=== PATIENT | male | born 1990 | race Caucasian/White ===

== ENCOUNTER 2017-07-21 15:35 | Emergency (ER) | payer MEDICAID ==
[~2017-07-21] VITALS: Ht 180.3 cm; Wt 68.0 kg
[~2017-07-21 15:35] MED LIST: MARIJUANA
[2017-07-21 16:20] VITALS: BP 129/62
[2017-07-21] MEDS ORDERED: IBUPROFEN 800 MG TAB PO ONE (17:15)
== END 2017-07-21 17:18 | disposition home or self-care (01) ==
LOC: ER 15:35
DX: S60.041A Contusion of right ring finger without damage to nail, initial encounter (principal); S60.031A Contusion of right middle finger without damage to nail, initial encounter; Z88.8 Allergy status to other drugs, medicaments and biological substances; W22.8XXA Striking against or struck by other objects, initial encounter; Y93.89 Activity, other specified; Y92.89 Other specified places as the place of occurrence of the external cause; Y99.8 Other external cause status
CPT/HCPCS: 73130

== ENCOUNTER 2017-09-30 07:19 | Emergency (ER) | payer MEDICAID ==
[~2017-09-30] VITALS: Ht 180.3 cm; Wt 68.0 kg
[2017-09-30 08:06] LABS: Basophils # (auto) 0.1 uL; Basophils % (auto) 0.8 % (0.0-2.0); Eosinophils # (auto) 0.1 uL; Eosinophils % (auto) 1.4 % (0.0-7.0); Hematocrit 43.6 % (41.0-53.0); Lymphocytes # (auto) 1.5 uL; Lymphocytes % (auto) 19.5 % (10.0-50.0); Mean Corpuscular Hemoglobin 31.6 pg (28.0-32.0); Mean Corpuscular Hgb Conc. 34.4 g/dL (32.0-36.0); Mean Corpuscular Volume 91.9 fL (80.0-100.0); Monocytes # (auto) 0.5 uL; Monocytes % (auto) 6.2 % (0.0-12.0); Neutrophils # (auto) 5.7 uL; Neutrophils % (auto) 72.1 % (37.0-80.0); Nucleated Red Blood Cells % 0.1 %; Platelet Count (auto) 161 10^3/uL (140-450); Red Blood Cells 4.74 10^6/uL (4.5-5.90); White Blood Cell 7.9 10^3/uL (4.4-10.8)
[2017-09-30 08:22] LABS: Alanine Aminotransferase 23 U/L (16-61); Albumin 4.1 g/dL (3.4-5.0); Anion Gap 8 (5-15); Aspartate Aminotransferase 17 U/L (15-37); BUN/Creatinine Ratio 11.6; Blood Alcohol < 3.0 mg/dL (0-5); Blood Urea Nitrogen 10 mg/dL (7-18); Calcium 8.1 mg/dL (8.5-10.1); Carbon Dioxide 26 mmol/L (21-32); Chloride 109 mmol/L (98-107); GFR African American 138 mL/min; GFR Non-African American 114 mL/min; Glucose 93 mg/dL (74-106); Potassium 3.8 mmol/L (3.5-5.1); Salicylate 3.5 mg/dL (2.8-20.0); Sodium 143 mmol/L (136-145)
[2017-09-30 08:24] LABS: Alkaline Phosphatase 115 U/L (45-117); Bilirubin, Total 0.3 mg/dL (0.2-1.0); Total Protein 7.2 g/dL (6.4-8.2)
[2017-09-30 08:29] LABS: Acetaminophen < 2.0 ug/mL (10-30)
[2017-09-30] MEDS ORDERED: LORazepam 0.5 MG TAB PO ONE (09:00)
[2017-09-30 09:10] LABS: Urine Amorphous Crystal FEW /hpf (None Seen); Urine Bacteria FEW /hpf (None Seen); Urine Blood 1+ /uL (Negative); Urine Mucus FEW (None Seen); Urine Specific Gravity 1.024 (1.001-1.035); Urine WBC 12 /hpf (0 - 3)
[2017-09-30 09:22] LABS: Alcohol, Urine < 3.0 mg/dL (0-5); Amphetamine Screen, Urine NEGATIVE (NEGATIVE); Barbiturate Scree,Urine NEGATIVE (NEGATIVE); Benzodiazephine Screen, Urine NEGATIVE (NEGATIVE); Cannabinoid Screen, Urine POSITIVE (NEGATIVE); Cocaine Screen, Urine NEGATIVE (NEGATIVE); Opiate Scree,Urine NEGATIVE (NEGATIVE); Phencyclidine Screen, Urine NEGATIVE (NEGATIVE)
[2017-09-30] MEDS: traZODone HCL 50 MG TAB PO SCH (21:58)
[2017-10-01] MEDS: NITROFURANTOIN (MONO) 100 mg CAP PO SCH ×2 (11:29→21:58)
[2017-10-01] MEDS: OLANZapine 5 MG TAB PO SCH ×2 (11:30→21:58)
[2017-10-02] MEDS: NITROFURANTOIN (MONO) 100 mg CAP PO SCH ×2 (07:37→21:58)
[2017-10-02] MEDS: OLANZapine 5 MG TAB PO SCH ×2 (07:37→21:58)
[2017-10-02] MEDS ORDERED: VALPROIC ACID 250 MG CAP PO ONE (21:51)
[2017-10-02] MEDS: traZODone HCL 50 MG TAB PO SCH (21:58)
[2017-10-03 07:39] VITALS: BP 104/52
[2017-10-03] MEDS: OLANZapine 5 MG TAB PO SCH (09:59)
[2017-10-03] MEDS: NITROFURANTOIN (MONO) 100 mg CAP PO SCH (09:59)
== END 2017-10-03 18:27 | disposition home or self-care (01) ==
LOC: EDBD 07:19 → ER 07:19
DX: R45.851 Suicidal ideations (principal); F41.9 Anxiety disorder, unspecified; F32.9 Major depressive disorder, single episode, unspecified
CPT/HCPCS: 36415; 80053; 80307; 80320; 80329; 81001; 85025

== ENCOUNTER 2020-08-01 18:08 | Emergency (ER) | payer MEDICAID ==
[~2020-08-01] VITALS: Ht 180.3 cm; Wt 72.6 kg
[2020-08-01 18:11] VITALS: BP 103/78
== END 2020-08-01 22:41 | disposition left against medical advice (07) ==
LOC: ER 18:08
DX: J11.1 Influenza due to unidentified influenza virus with other respiratory manifestations (principal); Z53.21 Procedure and treatment not carried out due to patient leaving prior to being seen by health care provider; Z20.822 Contact with and (suspected) exposure to COVID-19
CPT/HCPCS: 36415; 87426